=== PATIENT | male | born 1945 | race Caucasian/White ===

== ENCOUNTER → 2023-01-18 | Outpatient (CLI) | payer OTHER, SELFPAY ==
--- NOTE | 2023-01-18 13:54 | ECHOD_ITS ---
Reason For Study: CAD/ASHD Procedure This was a 2D Doppler, Color Flow transthoracic echocardiogram. Exam performed in department. Left Ventricle Normal left ventricle. The left ventricular ejection fraction is 65 %. Normal diastology for age. Right Ventricle Normal right ventricle. Atria The left atrium is moderately enlarged. Normal right atrium. Mitral Valve Trivial mitral valve insufficiency. Tricuspid Valve Trivial tricuspid valve insufficiency. Normal pulmonary artery pressure. Aortic Valve Normal aortic valve. Pulmonic Valve The pulmonic valve is not well visualized. Trivial pulmonic valve insufficiency. Great Vessels Normal sized aortic root. Pericardium/Pleural No pericardial effusion. MMode/2D Measurements & Calculations LVIDd: 5.3 cm IVSd: 0.93 cm Ao root diam: 3.8 cm LVIDs: 3.7 cm LVPWd: 1.0 cm RVDd: 3.7 cm FS: 30.6 % LAV(MOD-bp): 64.7 ml EDV(MOD-sp4): 109.0 ml EDV(MOD-sp2): 56.6 ml LAV(MOD-bp) Indexed: 31.0 ml/m2 ESV(MOD-sp4): 48.8 ml ESV(MOD-sp2): 20.1 ml LAV(MOD-sp2): 55.7 ml EF(MOD-sp4): 55.2 % EF(MOD-sp2): 64.4 % LAV(MOD-sp4): 66.2 ml SV(MOD-sp4): 60.2 ml SV(MOD-sp2): 36.4 ml LA A4 area: 22.6 cm2 LA dimension(2D): 4.4 cm RA A4 area: 18.0 cm2 Time Measurements MV dec time: 0.22 sec Doppler Measurements & Calculations MV E max [place]: 65.0 cm/sec Lat Peak E' [place]: 14.9 cm/sec Med Peak E' [place]: 9.7 cm/sec MV A max [place]: 47.2 cm/sec E/E' lat: 4.4 E/E' med: 6.7 MV E/A: 1.4 MV dec slope: 290.4 cm/sec2 Ao V2 max: 145.0 cm/sec LV V1 max: 126.8 cm/sec Ao max P.4 mmHg LV V1 max P.4 mmHg Ao V2 mean: 98.5 cm/sec LV V1 mean P.1 mmHg Ao mean P.4 mmHg LV V1 mean: 82.5 cm/sec Ao V2 VTI: 34.4 cm LV V1 VTI: 25.2 cm AV (velocity ratio): 0.73 PA V2 max: 119.2 cm/sec TR max [place]: 245.1 cm/sec TR max P.0 mmHg ECHO/Echo Complete Interpretation Summary The left ventricular ejection fraction is 65 %. The left atrium is moderately enlarged. Ordering Physician: ANA SARABIA Referring Physician: Amy Sheridan Performed By: Keyana Mohamud RDCS, RVT
== END | disposition home or self-care (01) ==
LOC: CVS 13:49
DX: I25.10 Atherosclerotic heart disease of native coronary artery without angina pectoris (principal)
CPT/HCPCS: 93306